=== PATIENT | female | born 2000 | race Caucasian/White ===

== ENCOUNTER 2022-03-07 23:28 | Emergency (ER) | payer OTHER ==
[~2022-03-07 23:28] MED LIST: ZOFRAN8 MG PO
[2022-03-07 23:57] LABS: BASOPHIL 0.1 % (0-2); EOSINOPHIL 0.5 % (0-5); HGB 13.1 g/dl (12.5-16.0); LYMPHOCYTE 7.2 % (15-48); MCH 29.4 pg (25.0-31.0); MCHC 34.5 g/dL (32.0-36.0); MCV 85.2 fL (78.0-100.0); MONOCYTE 7.1 % (0-12); MPV 9.6 fL (6.0-9.5); NEUTROPHIL 84.8 % (41-80); NRBC 0; PLT 183 K/uL (150-400); RBC 4.46 M/uL (4.20-5.40); RDW 13.2 % (11.5-14.0); WBC 7.4 K/uL (4.0-10.5)
[2022-03-08 00:16] LABS: ALBUMIN 3.9 g/dL (3.4-5.0); BILIRUBIN - TOTAL 0.3 mg/dL (0.2-1.0); BUN/CREAT RATIO (CALC) 14.3 RATIO; CREATININE 0.77 mg/dL (0.51-0.95); GLOBULIN (CALCULATION) 3.1 g/dL; POTASSIUM 3.2 mmol/L (3.5-5.1)
[2022-03-08 00:18] LABS: BILIRUBIN NEGATIVE (NEGATIVE); BLOOD NEGATIVE Ery/uL (NEGATIVE); COLOR STRAW (YELLOW); GLUCOSE (U) NORMAL (NORMAL); LEUKOCYTES TRACE Leu/uL (NEGATIVE); NITRITE NEGATIVE (NEGATIVE); PROTEIN NEGATIVE (NEGATIVE); UROBILINOGEN 0.2 mg/dL (0.2-1.0); pH 7.5 (5.0-9.0)
[2022-03-08 00:19] LABS: CLARITY SLIGHTLY HAZY (CLEAR)
[2022-03-08 00:22] LABS: AMPHETAMINES NEGATIVE (NEGATIVE); BARBITURATES NEGATIVE (NEGATIVE); ECSTASY (MDMA) NEGATIVE (NEGATIVE); MARIJUANA (THC) NEGATIVE (NEGATIVE); METHADONE NEGATIVE (NEGATIVE); OPIATES NEGATIVE (NEGATIVE); OXYCODONE NEGATIVE (NEGATIVE)
[2022-03-08 00:24] LABS: BACTERIA TRACE; SQUAMOUS EPITHELIAL CELLS 20-50
[2022-03-08 00:51] LABS: CORONAVIRUS 2019 SARS-COV-2 NEGATIVE (NEGATIVE); INFLUENZA A NAA NEGATIVE (NEGATIVE)
[2022-03-08] MEDS ORDERED: ONDANSETRON ODT4 MG PO (02:21)
[2022-03-08] MEDS ORDERED: SENNA PLUS 8.61 EACH PO (02:21)
[2022-03-08] MEDS ORDERED: PHENERGAN25 M1 PO (02:21)
== END 2022-03-08 03:06 | disposition home or self-care (01) ==
LOC: FER 23:28
PROVIDERS: Internal Medicine
DX: R07.89 Other chest pain (principal); E87.6 Hypokalemia; R00.0 Tachycardia, unspecified; R11.2 Nausea with vomiting, unspecified; K59.00 Constipation, unspecified; Z20.822 Contact with and (suspected) exposure to COVID-19
CPT/HCPCS: 36415; 71260; 80053; 80305; 81001; 83605; 83690; 84145; 84484; 85025; 87040; 93005; J3475; J7120; Q9967; U0002